=== PATIENT | female | born 1980 | race Caucasian/White ===

== ENCOUNTER 2016-07-16 22:20 | Emergency (ER) | payer BC ==
[~2016-07-16] VITALS: Ht 175.3 cm; Wt 77.1 kg
[2016-07-16] MEDS ORDERED: 0.9 % SOD CHL for STERILE FIELD 10 ML DISP.SYRIN. ONE (23:15)
[2016-07-16] MEDS ORDERED: HYDROMORPHONE 2 MG/ML VIAL. IV ONE (23:15)
[2016-07-16] MEDS ORDERED: IV NORMAL SALINE 500ML BAG 500 ML IV ONE (23:15)
--- NOTE | 2016-07-16 23:16 | PHYS DOC ---
Adult General Chief Complaint Chief Complaint: FLANK PAIN HPI HPI This is a 28-year-old female who has significant right upper chest pain that she is had for the last several days. 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 Patient states she has a planned to travel to [place] tomorrow to try to obtain a placement in a research study for her ongoing malignancy. She appears in mild distress but speaking in complete sentences but denies any significant shortness of breath. She denies any fever or chills. She denies any cough. Review of Systems Review of Systems Constitutional: Denies fever or chills [] Eyes: Denies change in visual acuity, redness, or eye pain [] HENT: Denies nasal congestion or sore throat [] Respiratory: Denies cough or shortness of breath [] Cardiovascular: No additional information not addressed in HPI [] GI: Denies abdominal pain, nausea, vomiting, bloody stools or diarrhea [] : Denies dysuria or hematuria [] Musculoskeletal: Denies back pain or joint pain [] Integument: Denies rash or skin lesions [] Neurologic: Denies headache, focal weakness or sensory changes [] Endocrine: Denies polyuria or polydipsia [] Current Medications Current Medications Current Medications Medications (Trade) Dose Ordered Sig/Alondra Start Time Stop Time Status Last Admin Dose Admin Heparin Sodium (Porcine) (Hep Lock Adult) 500 unit 1X ONCE 07/17/16 02:00 07/17/16 02:01 DC 07/17/16 01:45 500 UNIT Hydromorphone HCl 1 mg 1 mg 1X ONCE 07/17/16 00:30 07/17/16 00:31 DC 07/17/16 00:30 1 MG Ondansetron HCl (Zofran) 4 mg 1X ONCE 07/17/16 00:30 07/17/16 00:31 DC 07/17/16 00:30 4 MG Promethazine HCl/ Sodium Chloride (Phenergan/Iv Sodium Chloride 0.9% 50ml) 50.5 ml @ 151.5 mls/ hr PRN Q6HRS PRN 07/17/16 00:45 07/17/16 11:31 DC 07/17/16 01:21 151.5 MLS/HR Sodium Chloride (Iv Sodium Chloride 0.9% 500ml Bag) 500 ml @ 500 mls/hr 1X ONCE 07/16/16 23:15 07/17/16 00:20 DC 07/17/16 00:01 500 MLS/HR Sodium Chloride (NORMAL SALINE FLUSH for STERILE FIELD) 10 ml 1X ONCE 07/17/16 02:00 07/17/16 02:01 DC 07/16/16 23:35 10 ML Allergies Allergies Allergies Coded Allergies Type Severity Reaction Last Updated Verified No Known Drug Allergies 07/17/16 No Physical Exam Physical Exam Constitutional: Well developed, well nourished, no acute distress, non-toxic appearance. [] HENT: Normocephalic, atraumatic, bilateral external ears normal, oropharynx moist, no oral exudates, nose normal. [] Eyes: PERRLA, EOMI, conjunctiva normal, no discharge. [] Neck: Normal range of motion, no tenderness, supple, no stridor. [] Cardiovascular:Heart rate regular rhythm, no murmur [] Lungs & Thorax: Bilateral breath sounds clear to auscultation [] Abdomen: Bowel sounds normal, soft, no tenderness, no masses, no pulsatile masses. [] Skin: Warm, dry, no erythema, no rash. [] Back: No tenderness, no CVA tenderness. [] Extremities: No tenderness, no cyanosis, no clubbing, ROM intact, no edema. [] Neurologic: Alert and oriented X 3, normal motor function, normal sensory function, no focal deficits noted. [] Psychologic: Affect normal, judgement normal, mood normal. [] Current Patient Data Vital Signs Vital Signs Date Time Temp Pulse Resp B/P Pulse Ox O2 Delivery O2 Flow Rate FiO2 07/17/16 01:50 80 20 116/75 94 Room Air 07/16/16 22:50 98.6 98.6 Lab Values Laboratory Tests Test 07/17/16 00:10 Urine Collection Type Unknown Urine Color Yellow Urine Clarity Clear Urine pH 7.0 Urine Specific [place] <=1.005 Urine Protein Tracemg/dL (NEG-TRACE) Urine Glucose (UA) 250mg/dL (NEG) Urine Ketones (Stick) Negativemg/dL (NEG) Urine Blood Small (NEG) Urine Nitrite Negative (NEG) Urine Bilirubin Negative (NEG) Urine Urobilinogen Dipstick 0.2mg/dL (0.2 mg/dL) Urine Leukocyte Esterase Negative (NEG) Urine RBC Occ/HPF (0-2) Urine WBC 0/HPF (0-4) Urine Squamous Epithelial Cells Occ/LPF Urine Bacteria 0/HPF (0-FEW) Urine Test Negative (NEG) Radiology/Procedures Radiology/Procedures Portable one view of the chest as interpreted by the radiologist and myself reveals extensive right sided metastatic disease with no previous to compare to. Course & Med Decision Making Course & Med Decision Making Pertinent Labs and Imaging studies reviewed. (See chart for details) 28-year-old female with known malignancy metastasis to her lungs. Obtain a portable 1 view of her chest rule out any acute abnormality. If negative I will attempt to control the patient with IV Dilaudid fluids using a port that is placed in her right IJ. If I can adequately control the patient's pain she'll be safe to be discharged. If she feels comfortable, she will be going home and I 'll be admitting her for pain control secondary to her malignancy. Upon my reassessment after multiple doses of Dilaudid, the patient has an adequate oxygen saturation and will be discharged with 2 tablets of dilaudid for her journey to [place] for her cancer evaluation. There is no indication at this time to perform any other laboratory workup. Dragon Disclaimer Dragon Disclaimer This electronic medical record was generated, in whole or in part, using a voice recognition dictation system. Departure Departure Impression: Primary Impression: Chest wall pain Additional Impression: Lung cancer Disposition: 01 HOME, SELF-CARE Condition: IMPROVED Referrals: NO PCP (PCP) Patient Instructions: Chest Wall Pain, [id number] Additional Instructions: Please take your pain medication as prescribed. Return to the ER if you develop any worsening of your symptoms. Scripts Hydromorphone Hcl (Dilaudid)2 Mg Tablet2 Mg PO 1X PRN PAIN #2 Prov:HUSEYIN CUELLAR DO 07/17/16 Problem Qualifiers HUSEYIN CUELLAR DO Jul 16, 2016 23:16
[2016-07-16] MEDS ORDERED: ONDANSETRON PF 4 MG/2 ML VIAL. ONE (23:56)
[2016-07-17] MEDS ORDERED: ONDANSETRON PF 4 MG/2 ML VIAL. IV ONE (00:30)
[2016-07-17] MEDS ORDERED: HYDROMORPHONE 2 MG/ML VIAL. IV ONE (00:30)
[2016-07-17 00:44] LABS: NEG OBC UR NEG; POS OBC UR POS
[2016-07-17] MEDS ORDERED: PROMETHAZINE 12.5 MG in IV NORMAL SALINE 50ML 50 ML IV PRN (00:45)
[2016-07-17 00:46] LABS: BILIRUBIN,URINE NEGATIVE (NEG); GLUCOSE,URINE 250 mg/dL (NEG); NITRITE,URINE NEGATIVE (NEG); UROBILINOGEN,URINE 0.2 mg/dL (0.2 mg/dL)
[2016-07-17 00:52] LABS: BACTERIA,URINE 0 /HPF (0-FEW); PROTEIN,URINE TRACE mg/dL (NEG-TRACE); RBC,URINE OCC /HPF (0-2); SQUAMOUS EPITHELIAL CELL,UR OCC /LPF; WBC,URINE 0 /HPF (0-4)
[2016-07-17] MEDS ORDERED: HYDR2TAB13 PO (01:29)
[2016-07-17 01:50] VITALS: BP 116/75
[2016-07-17] MEDS ORDERED: 0.9 % SOD CHL for STERILE FIELD 10 ML DISP.SYRIN. IV ONE ×2 (02:00)
[2016-07-17] MEDS ORDERED: HEPARIN PF 500 UNIT/5 ML DISP.SYRIN. IV ONE (02:00)
--- NOTE | 2016-07-17 07:23 | RAD ---
Portable chest, 07/16/2016: History: Chest pain, osteosarcoma No previous chest radiographs are available at this time for comparison purposes. A right Port-A-Cath extends into the superior aspect of the right atrium. The heart size is normal. The pulmonary vascularity as visualized on the left is within normal limits. No left lung infiltrate or pleural fluid is seen. There are extensive right chest opacities which appear to represent a combination of parenchymal masses and pleural thickening. Densities projected over the dome of the right hemidiaphragm suggest a calcific pleural component. Given the patient's history, metastatic disease is most likely. IMPRESSION: Extensive right chest pleural and parenchymal opacities likely on a metastatic basis. Correlation with previous imaging studies would be most helpful.
== END 2016-07-17 02:36 | disposition home or self-care (01) ==
LOC: ER 22:20
DX: C78.2 Secondary malignant neoplasm of pleura (principal)
CPT/HCPCS: 71010; 81001; 81025; 96374; 96375; 96376; 99285; J1170; J2405; J2550; J7040